=== PATIENT | female | born 1960 | race Caucasian/White ===

== ENCOUNTER 2016-10-10 15:09 | Emergency (ER) | payer OTHER ==
[~2016-10-10] VITALS: Ht 175.3 cm; Wt 81.6 kg
[2016-10-10 17:43] LABS: ADD MIUA? NO; BILIRUBIN NEGATIVE; BLOOD NEGATIVE; COLOR STRAW ((YELLOW)); GLUCOSE (STRIP) NEGATIVE; KETONES 5; LEUKOCYTES NEGATIVE; NITRITE NEGATIVE; PROTEIN (STRIP) NEGATIVE; SPECIFIC GRAVITY 1.006 (1.000-1.030); UROBILINOGEN 0.2 MG/DL (0.2-1.0)
[2016-10-10 17:46] LABS: HEMATOCRIT 36.7 % (36.0-46.0); MCH 34.1 PG (29.0-34.0); MCHC 35.4 G/DL (30.0-36.0); MCV 96.3 FL (83-99); MEAN PLAT.VOLUME 8.9 uM^3 (9.5-12.4); PLATELET COUNT 171 K/uL (156-360); RBC DIS.WIDTH-CV 12.7 % (11.8-14.6); RBC DIS.WIDTH-SD 45.6 % (39-53); RED BLOOD COUNT 3.81 M/uL (3.80-5.20)
[2016-10-10 17:53] LABS: AMPHETAMINE NEGATIVE (500 ng/mL); BARBITURATES NEGATIVE (200 ng/mL); BENZODIAZEPINES NEGATIVE (150 ng/mL); COCAINE NEGATIVE (150 ng/mL); INTERNAL CONTROLS VALID? YES; METHADONE NEGATIVE (200 ng/mL); METHAMPHETAMINE NEGATIVE (500 ng/mL); OPIATES (MORPHINE) NEGATIVE (100 ng/mL); OXYCODONE NEGATIVE (100 ng/mL); PHENCYCLIDINE NEGATIVE (25 ng/mL); PROPOXYPHENE NEGATIVE (300 ng/mL); THC CANNABINOIDS NEGATIVE (50 ng/mL); TRICYCLIC ANTIDEPRESSANTS NEGATIVE (300 ng/mL)
[2016-10-10 17:56] LABS: CHLORIDE 94 mEq/L (99-109); POTASSIUM 3.6 mEq/L (3.7-5.4); SODIUM 129 mEq/L (136-147)
[2016-10-10 17:59] LABS: GLUCOSE 99 mg/dL (70-99)
[2016-10-10 18:00] LABS: ANION GAP 16 MEQ/L (2-14); TOTAL BILIRUBIN 0.3 mg/dL (0.0-1.0)
[2016-10-10 18:01] LABS: SERUM ETHYL ALCOHOL 321 mg/dL
[2016-10-10 18:02] LABS: ALKALINE PHOSPHATASE 88 IU/L (3-129)
[2016-10-10 18:03] LABS: GFR ESTIMATE (CALCULATED) > 59 mL/min/; UREA NITROGEN (BUN) 4 mg/dL (9-23)
[2016-10-10 18:06] LABS: LIPASE 74 U/L (1.0-51.0)
[2016-10-10 20:32] VITALS: BP 143/83
[2016-10-10] MEDS ORDERED: NORCO 5/3251 TABLET PO (20:32)
== END 2016-10-10 21:08 | disposition home or self-care (01) ==
LOC: TRA 15:09 → EME 15:09 → TRA 21:08
PROVIDERS: Nurse Practitioner Family
PROC: 2W3CX1Z Immobilization of Right Lower Arm using Splint (ICD-10-PCS; principal; 2016-10-10)
DX: S52.591A Other fractures of lower end of right radius, initial encounter for closed fracture (principal); V49.40XA Driver injured in collision with unspecified motor vehicles in traffic accident, initial encounter; F10.129 Alcohol abuse with intoxication, unspecified; R74.8 Abnormal levels of other serum enzymes; T14.8 Other injury of unspecified body region; E87.1 Hypo-osmolality and hyponatremia; R74.0 Nonspecific elevation of levels of transaminase and lactic acid dehydrogenase [LDH]; I10 Essential (primary) hypertension
CPT/HCPCS: 70450; 71020; 72125; 73090; 73100; 73110; 74177; 80053; 81003; 83690; 85027; 93005; 99281; 99285; G0480; J7040